=== PATIENT | male | born 1985 | race Two or more races ===

== ENCOUNTER 2018-12-10 10:11 | Emergency (ER) | payer SELFPAY ==
[~2018-12-10] VITALS: Ht 180.3 cm; Wt 97.5 kg
--- NOTE | 2018-12-10 10:25 | PHYS DOC ---
Adult General Chief Complaint Chief Complaint: ABDOMINAL PAIN HPI HPI Patient is a 33 year old male with no significant medical history who presents to the ED today with multiple complaints. Patient is complaining of mild intermittent generalized abdominal pain, nausea, vomiting, diarrhea, back pain, kidney pain, patient states symptoms began on Thursday after he had food at [employer]. Patient denies any hematemesis or melena. Denies anything alleviating his symptoms. Denies anything specifically making his symptoms worse. Review of Systems Review of Systems Constitutional: Denies fever or chills [] Eyes: Denies change in visual acuity, redness, or eye pain [] HENT: Denies nasal congestion or sore throat [] Respiratory: Denies cough or shortness of breath [] Cardiovascular: No additional information not addressed in HPI [] GI: Reports abdominal pain, nausea, vomiting, diarrhea : Denies dysuria or hematuria [] Musculoskeletal: Reports back pain, kidney pain, denies joint pain [] Integument: Denies rash or skin lesions [] Neurologic: Denies headache, focal weakness or sensory changes [] All other systems were reviewed and found to be within normal limits, except as documented in this note. Current Medications Current Medications Current Medications Medications (Trade) Dose Ordered Sig/Elysia Start Time Stop Time Status Last Admin Dose Admin Famotidine (Pepcid Vial) 20 mg 1X ONCE 12/10/18 10:30 12/10/18 10:31 DC 12/10/18 11:06 20 MG Info (CONTRAST GIVEN -- Rx MONITORING) 1 each PRN DAILY PRN 12/10/18 10:45 12/12/18 10:44 Iohexol (Omnipaque 300 Mg/ml) 75 ml 1X ONCE 12/10/18 10:45 12/10/18 10:46 DC 12/10/18 11:33 75 ML Ondansetron HCl (Zofran) 4 mg 1X ONCE 12/10/18 10:30 12/10/18 10:31 DC Potassium Chloride (Klor-Con) 40 meq 1X ONCE 12/10/18 12:45 12/10/18 12:46 UNV Sodium Chloride 1,000 ml @ 1,000 mls/hr 1X ONCE 12/10/18 10:30 12/10/18 11:29 DC 12/10/18 10:57 1,000 MLS/HR Allergies Allergies Allergies Coded Allergies Type Severity Reaction Last Updated Verified aspirin Allergy Mild 12/10/18 Yes Penicillins Allergy Unknown 12/10/18 Yes Physical Exam Physical Exam Constitutional: Well developed, well nourished, no acute distress, non-toxic appearance. [] HENT: Normocephalic, atraumatic, bilateral external ears normal, oropharynx moist, no oral exudates, nose normal. [] Eyes: PERRLA, EOMI, conjunctiva normal, no discharge. [] Neck: Normal range of motion, no tenderness, supple, no stridor. [] Cardiovascular:Heart rate regular rhythm, no murmur [] Lungs & Thorax: Bilateral breath sounds clear to auscultation [] Abdomen: Rounded distended abdomen. Bowel sounds normal, soft, no tenderness, no masses, no pulsatile masses. [] Skin: Warm, dry, no erythema, no rash. [] Back: No tenderness, no CVA tenderness. [] Extremities: No tenderness, no cyanosis, no clubbing, ROM intact, no edema. [] Neurologic: Alert and oriented X 3, normal motor function, normal sensory function, no focal deficits noted. [] Psychologic: Affect normal, judgement normal, mood normal. [] Current Patient Data Vital Signs Vital Signs Date Time Temp Pulse Resp B/P (MAP) Pulse Ox O2 Delivery O2 Flow Rate FiO2 12/10/18 10: 97.9 81 20 142/88 (106) 99 Room Air 97.9 Lab Values Laboratory Tests Test 12/10/18 10:35 12/10/18 10:45 Urine Collection Type Unknown Urine Color Yellow Urine Clarity Cloudy Urine pH 8.0 Urine Specific [place] 1.015 Urine Protein Negative mg/dL (NEG-TRACE) Urine Glucose (UA) Negative mg/dL (NEG) Urine Ketones (Stick) Negative mg/dL (NEG) Urine Blood Negative (NEG) Urine Nitrite Negative (NEG) Urine Bilirubin Negative (NEG) Urine Urobilinogen Dipstick 1.0 mg/dL (0.2 mg/dL) Urine Leukocyte Esterase Negative (NEG) Urine RBC 0 /HPF (0-2) Urine WBC 1-4 /HPF (0-4) Urine Squamous Epithelial Cells Occ /LPF Urine Bacteria Few /HPF (0-FEW) Urine Opiates Screen Neg (NEG) Urine Methadone Screen Neg (NEG) Urine Barbiturates Neg (NEG) Urine Phencyclidine Screen Neg (NEG) Urine Amphetamine/Methamphetamine Neg (NEG) Urine Benzodiazepines Screen Neg (NEG) Urine Cocaine Screen Neg (NEG) Urine Cannabinoids Screen Pos (NEG) Urine Ethyl Alcohol Neg (NEG) White Blood Count 9.8 x10^3/uL (4.0-11.0) Red Blood Count 5.48 x10^6/uL (4.30-5.70) Hemoglobin 17.1 g/dL (13.0-17.5) Hematocrit 48.6 % (39.0-53.0) Mean Corpuscular Volume 89 fL (79-100) Mean Corpuscular Hemoglobin 31 pg (25-35) Mean Corpuscular Hemoglobin Concent 35 g/dL (31-37) Red Cell Distribution Width 13.3 % (11.5-14.5) Platelet Count 252 x10^3/uL (140-400) Neutrophils (%) (Auto) 71 % (31-73) Lymphocytes (%) (Auto) 16 % (24-48) L Monocytes (%) (Auto) 11 % (0-9) H Eosinophils (%) (Auto) 2 % (0-3) Basophils (%) (Auto) 0 % (0-3) Neutrophils # (Auto) 6.9 x10^3uL (1.8-7.7) Lymphocytes # (Auto) 1.6 x10^3/uL (1.0-4.8) Monocytes # (Auto) 1.0 x10^3/uL (0.0-1.1) Eosinophils # (Auto) 0.2 x10^3/uL (0.0-0.7) Basophils # (Auto) 0.0 x10^3/uL (0.0-0.2) Sodium Level 142 mmol/L (136-145) Potassium Level 3.3 mmol/L (3.5-5.1) L Chloride Level 104 mmol/L (98-107) Carbon Dioxide Level 29 mmol/L (21-32) Anion Gap 9 (6-14) Blood Urea Nitrogen 6 mg/dL (8-26) L Creatinine 0.8 mg/dL (0.7-1.3) Estimated GFR (Cockcroft-Gault) 110.7 BUN/Creatinine Ratio 8 (6-20) Glucose Level 85 mg/dL (70-99) Calcium Level 9.1 mg/dL (8.5-10.1) Total Bilirubin 1.5 mg/dL (0.2-1.0) H Aspartate Amino Transferase (AST) 36 U/L (15-37) Alanine Aminotransferase (ALT) 69 U/L (16-63) H Alkaline Phosphatase 104 U/L (46-116) Total Protein 7.5 g/dL (6.4-8.2) Albumin 3.8 g/dL (3.4-5.0) Albumin/Globulin Ratio 1.0 (1.0-1.7) Lipase 99 U/L (73-393) Ethyl Alcohol Level < 10 mg/dL (0-10) Laboratory Tests 12/10/18 10:45 Laboratory Tests 12/10/18 10:45 EKG EKG [] Radiology/Procedures Radiology/Procedures []PROCEDURE: CT ABD PELV W/ IV CONTRST ONLY Examination: CT of the abdomen pelvis with IV contrast HISTORY: History of abdominal pain, nausea, vomiting for one week COMPARISON: None available TECHNIQUE: Axial CT images of the abdomen pelvis were performed with IV contrast. Coronal and sagittal reformats are performed Exposure: One or more of the following individualized dose reduction techniques were utilized for this examination: 1. Automated exposure control 2. Adjustment of the mA and/or kV according to patient size 3. Use of iterative reconstruction technique FINDINGS: The bibasilar lungs are clear. No evidence of free air identified in the abdomen. The visualized liver, spleen, adrenals grossly appears unremarkable. The gallbladder is mildly distended. The visualized pancreas grossly appears unremarkable. The stomach is moderately distended. The small bowel is nondilated. Feces and gas noted in the colon. Mild thickened appearance of the wall of the descending colon. . The appendix is normal. Urinary bladder is mildly distended. The bilateral kidneys enhance symmetrically. The aorta grossly appears unremarkable. The urinary bladder is mildly distended. No evidence of lytic bony destructive lesion. IMPRESSION: 1. Moderately distended stomach, nonspecific, cannot completely exclude gastric outlet obstruction or gastroparesis. 2. Mild thickened appearance of the wall of the descending colon could be due to nondistention or mild colitis. Electronically signed by: Anson Ace MD (12/10/2018 11:54 AM) [facility] DICTATED and SIGNED BY: ANSON ACE MD DATE: 12/10/18 1149 Course & Med Decision Making Course & Med Decision Making Pertinent Labs and Imaging studies reviewed. (See chart for details) This is a 33-year-old male patient presenting to the ED today with multiple complaints including abdominal pain, nausea, vomiting, diarrhea, back pain, and kidney pain, symptoms began on Thursday after he had food at [employer]. CBC with normal WBC, CMP with potassium of 3.3, patient was given oral potassium replacement. Lipase is normal. CT of the abdomen and pelvic-Moderately distended stomach, nonspecific, cannot completely exclude gastric outlet obstruction or gastroparesis. Mild thickened appearance of the wall of the descending colon could be due to nondistention or mild colitis. Spoke to Lindsay MAY for Dr. Hopkins, she consulted Dr. Hopkins, he stated if patient can tolerate by PO intake, has normal vitals, labs are okay he can be discharged to home. They will call him and give him a follow-up appointment in the clinic. Patient was given by mouth challenge in the ED. He tolerated apple juice and a bottle of water with no issues. He has not vomited. He states he feels better. He was discharged to home. Dragon Disclaimer Dragon Disclaimer This electronic medical record was generated, in whole or in part, using a voice recognition dictation system. Departure Departure Impression: Primary Impression: Abdominal pain Additional Impression: Vomiting and diarrhea Disposition: HOME, SELF-CARE Condition: STABLE Referrals: ZEFERINO HOPKINS MD follow up next week Patient Instructions: Abdominal Pain, Diarrhea, [id number], Nausea and Vomiting, [id number] Additional Instructions: You were evaluated in the emergency room for abdominal pain, nausea vomiting, diarrhea and other symptoms. We spoke to the harp maker, his office will contact you for an appointment to follow-up with them next week. If he don' t hear from them by Thursday evening call them on Thursday and set up a follow- up appointment. Take the prescribed medications as ordered. Come back to the ED at any point symptoms worsen. Scripts Ondansetron (ONDANSETRON ODT) 4 Mg Tab.rapdis 1 TAB PO PRN Q6-8HRS, #16 TAB Prov: MUTUNGA,RUTH TOP ICER 12/10/18 Dicyclomine Hcl (DICYCLOMINE HCL) 20 Mg Tablet 1 TAB PO TID, #30 TAB 1 Refill Prov: RUTH ROYAL APRN 12/10/18 Problem Qualifiers Primary Impression: Abdominal pain Abdominal location: generalized Qualified Codes: R10.84 - Generalized abdominal pain RUTH ROYAL APRN Dec 10, 2018 10:24
[2018-12-10] MEDS ORDERED: IV NORMAL SALINE 1000ML BAG 1,000 ML IV ONE (10:30)
[2018-12-10] MEDS ORDERED: FAMOTIDINE 20 MG/2 ML VIAL IVP ONE (10:30)
[2018-12-10] MEDS ORDERED: ONDANSETRON PF 4 MG/2 ML VIAL. IV ONE (10:30)
[2018-12-10] MEDS ORDERED: CONTRAST GIVEN. MC PRN (10:45)
[2018-12-10] MEDS ORDERED: IOHEXOL 300 MG/ML 100ML VIAL. IV ONE (10:45)
[2018-12-10 11:08] LABS: BASO % 0 % (0-3); EOS # 0.2 x10^3/uL (0.0-0.7); EOS % 2 % (0-3); HEMATOCRIT 48.6 % (39.0-53.0); HEMOGLOBIN 17.1 g/dL (13.0-17.5); LYMPH # 1.6 x10^3/uL (1.0-4.8); LYMPH % 16 % (24-48); MEAN CORPUSCULAR HEMOGLOBIN 31 pg (25-35); MEAN CORPUSCULAR HGB CONC 35 g/dL (31-37); MEAN CORPUSCULAR VOLUME 89 fL (79-100); MONO % 11 % (0-9); NEUT # 6.9 x10^3uL (1.8-7.7); NEUT % 71 % (31-73); PLATELET COUNT 252 x10^3/uL (140-400); RED BLOOD COUNT 5.48 x10^6/uL (4.30-5.70); RED CELL DISTRIBUTION WIDTH 13.3 % (11.5-14.5); WHITE BLOOD COUNT 9.8 x10^3/uL (4.0-11.0)
[2018-12-10 11:10] LABS: BILIRUBIN,URINE NEGATIVE (NEG); CLARITY,URINE CLOUDY; COLOR,URINE YELLOW; NITRITE,URINE NEGATIVE (NEG); PROTEIN,URINE NEGATIVE (NEG-TRACE)
[2018-12-10 11:17] LABS: BARBITURATES NEG (NEG); BENZODIAZEPINES NEG (NEG); CANNABINOIDS POS (NEG); COCAINE NEG (NEG); METHADONE NEG (NEG); OPIATES NEG (NEG); PHENCYCLIDINE NEG (NEG)
[2018-12-10 11:21] LABS: AMPHETAMINE/METHAMPHETAMINE NEG (NEG)
[2018-12-10 11:21] LABS: CALCIUM 9.1 mg/dL (8.5-10.1); CREATININE 0.8 mg/dL (0.7-1.3); GFR 110.7; POTASSIUM 3.3 mmol/L (3.5-5.1)
[2018-12-10 11:22] LABS: BACTERIA,URINE FEW /HPF (0-FEW); RBC,URINE 0 /HPF (0-2); SQUAMOUS EPITHELIAL CELL,UR OCC /LPF
[2018-12-10 11:27] LABS: ALBUMIN 3.8 g/dL (3.4-5.0); TOTAL BILIRUBIN 1.5 mg/dL (0.2-1.0); TOTAL PROTEIN 7.5 g/dL (6.4-8.2)
--- NOTE | 2018-12-10 11:57 | RAD ---
Examination: CT of the abdomen pelvis with IV contrast HISTORY: History of abdominal pain, nausea, vomiting for one week COMPARISON: None available TECHNIQUE: Axial CT images of the abdomen pelvis were performed with IV contrast. Coronal and sagittal reformats are performed Exposure: One or more of the following individualized dose reduction techniques were utilized for this examination: 1. Automated exposure control 2. Adjustment of the mA and/or kV according to patient size 3. Use of iterative reconstruction technique FINDINGS: The bibasilar lungs are clear. No evidence of free air identified in the abdomen. The visualized liver, spleen, adrenals grossly appears unremarkable. The gallbladder is mildly distended. The visualized pancreas grossly appears unremarkable. The stomach is moderately distended. The small bowel is nondilated. Feces and gas noted in the colon. Mild thickened appearance of the wall of the descending colon. . The appendix is normal. Urinary bladder is mildly distended. The bilateral kidneys enhance symmetrically. The aorta grossly appears unremarkable. The urinary bladder is mildly distended. No evidence of lytic bony destructive lesion. IMPRESSION: 1. Moderately distended stomach, nonspecific, cannot completely exclude gastric outlet obstruction or gastroparesis. 2. Mild thickened appearance of the wall of the descending colon could be due to nondistention or mild colitis. Electronically signed by: Anson Ace MD (12/10/2018 11:54 AM) [facility]
[2018-12-10 12:38] VITALS: BP 131/82
[2018-12-10] MEDS ORDERED: POTASSIUM CHLORIDE 20 MEQ TABLET.ER. PO ONE (12:45)
[2018-12-10] MEDS ORDERED: DICY20TA3 PO (12:46)
[2018-12-10] MEDS ORDERED: ONDA4TAB12 PO (12:46)
== END 2018-12-10 13:04 | disposition home or self-care (01) ==
LOC: ER 10:11
DX: R10.84 Generalized abdominal pain (principal); R11.2 Nausea with vomiting, unspecified; R19.7 Diarrhea, unspecified; N32.89 Other specified disorders of bladder; K31.89 Other diseases of stomach and duodenum; K82.8 Other specified diseases of gallbladder; Z88.6 Allergy status to analgesic agent; Z88.0 Allergy status to penicillin
CPT/HCPCS: 36415; 74177; 80053; 80307; 81001; 83690; 85025; 96361; 96374; 99284; G0480; J3490; J7030; Q9967